=== PATIENT | female | born 1980 ===

== ENCOUNTER 2020-12-29 12:56 | Outpatient (CLI) | payer OTHER ==
[~2020-12-29 12:56] MED LIST: AUGMENTIN 500 MG; BUCALSEP SPRAY30 ML MM; XYZAL5 MG PO
== END 2020-12-29 13:24 ==
LOC: MRI 12:56
DX: M41.85 Other forms of scoliosis, thoracolumbar region (principal); M62.838 Other muscle spasm; M54.2 Cervicalgia; M54.6 Pain in thoracic spine
CPT/HCPCS: 72141

== ENCOUNTER 2023-01-30 11:56 | Outpatient (CLI) | payer OTHER | END 2023-01-30 12:14 | disposition home or self-care (01) | LOC: MAMO-SONO 11:56 | DX: N63.0 Unspecified lump in unspecified breast (principal); N95.0 Postmenopausal bleeding ==

== ENCOUNTER 2023-01-30 14:27 | Outpatient (CLI) | payer OTHER | END 2023-01-30 14:28 | disposition home or self-care (01) | LOC: LAB 14:27 | DX: N92.0 Excessive and frequent menstruation with regular cycle (principal) ==

== ENCOUNTER → 2023-02-12 | Outpatient (CLI) | payer OTHER | END | disposition home or self-care (01) | LOC: MRI 11:02 | DX: M54.17 Radiculopathy, lumbosacral region (principal); M54.42 Lumbago with sciatica, left side | CPT/HCPCS: 72148 ==

== ENCOUNTER 2023-05-29 12:20 | Outpatient (CLI) | payer OTHER | END 2023-05-29 12:28 | disposition home or self-care (01) | LOC: SONOGRAMA 12:20 | DX: M75.81 Other shoulder lesions, right shoulder (principal); M75.82 Other shoulder lesions, left shoulder; N84.0 Polyp of corpus uteri ==

== ENCOUNTER 2024-09-06 10:38 | Outpatient (CLI) | payer OTHER ==
[~2024-09-06 10:38] MED LIST changes: +GABAPENTIN100 M2 PO
== END 2024-09-06 10:48 | disposition home or self-care (01) ==
LOC: SONOGRAMA 10:38
DX: N92.0 Excessive and frequent menstruation with regular cycle (principal)

== ENCOUNTER 2025-10-12 10:10 | Outpatient (CLI) | payer OTHER | END 2025-10-12 10:13 | disposition home or self-care (01) | LOC: MAMO-SONO 10:10 | DX: K29.30 Chronic superficial gastritis without bleeding (principal); Z80.3 Family history of malignant neoplasm of breast; M06.09 Rheumatoid arthritis without rheumatoid factor, multiple sites; K59.02 Outlet dysfunction constipation; J45.909 Unspecified asthma, uncomplicated; M62.830 Muscle spasm of back; M54.17 Radiculopathy, lumbosacral region; A49.3 Mycoplasma infection, unspecified site; N64.9 Disorder of breast, unspecified ==